=== PATIENT | female | born 1940 | race Caucasian/White ===

== ENCOUNTER 2016-07-29 12:25 | Day surgery (SDC) | payer MEDICARE, BC ==
[2016-07-25 16:55] LABS: HEMATOCRIT 41.2 % (36.0-48.0); HEMOGLOBIN 13.4 g/dL (12.0-16.0)
[2016-07-25 17:02] LABS: BUN (BLOOD UREA NITROGEN) 18 MG/DL (6-23); CALCIUM, SERUM 8.6 MG/DL (8.5-10.4); CHLORIDE, SERUM 100 MMOL/L (96-112); CO2 (CARBON DIOXIDE) 31 MMOL/L (24-34); CREATININE 0.93 MG/DL (0.55-1.02); GFR AFRICAN AMERICAN 70 ML/MIN (>=60); GFR NON AFRICAN AMERICAN 60 ML/MIN (>=60); GLUCOSE, SERUM 66 MG/DL (60-99); POTASSIUM, SERUM 4.7 MMOL/L (3.5-5.3); SODIUM, SERUM 139 MMOL/L (135-148)
--- NOTE | ~2016-07-29 | OP ---
Record Of [place] [address] [place]. [address] NAME: JOSELUIS RANDLE : 42 STATUS : [facility]#: [id number] AGE: 76 ADM/REG DATE : 07/29/16 MR#: [id number] REPORT SERV DATE: 07/29/16 DICTATED BY: HOMERO COOK JR. DATE: 07/29/16 REPORT STATUS : Draft TRANSCRIBED BY: VINH DATE: 07/29/16 DATE OF PROCEDURE: 07/29/2016 SURGEON: Homero Cook M.D. PREOPERATIVE DIAGNOSIS: Left renal stone. POSTOPERATIVE DIAGNOSIS: Left renal stone. PROCEDURE PERFORMED: Left extracorporeal shock wave lithotripsy. COMPLICATIONS: None. CONSULTATIONS: None. ANESTHESIA: Monitored anesthesia care with IV conscious sedation. SPECIMENS: None. DRAINS: None. ESTIMATED BLOOD LOSS: None. INDICATION: Mrs. Randle is a 76-year-old female, who comes today for lithotripsy of a renal pelvic stone on the left side, 1 cm in size. PROCEDURE IN DETAIL: After the patient was identified and proper informed consent was obtained, she was taken to the operating room and placed on the litho table, and the stone was visualized using C-arm fluoroscopy. Once adequately visualized, the patient was placed under IV conscious sedation with monitored anesthesia care. The F2 focal point of the lithotripsy machine was then focused on the stone and 2500 shocks were administered at a power setting between 4 and 5. The patient tolerated the procedure well. The stone appeared to fragment reasonably well on fluoroscopic imaging. She was awakened in the operating room, transferred to the postanesthesia care in stable condition. I will see her back in the office in two weeks with a KUB. CAITY/VINH Homero Cook Jr., M.D. / [id number] CC: Record Of [address] [place]. [address] NAME: JOSELUIS RANDLE : 42 STATUS : [facility] PAT#: [id number] AGE: 76 ADM/REG DATE : 07/29/16 MR#: [id number] REPORT SERV DATE: 07/29/16 DICTATED BY: HOMERO COOK JR. DATE: 07/29/16 REPORT STATUS : Draft TRANSCRIBED BY: MODL DATE: 07/29/16 Gianluca Hoyos Jr., M.D.
[~2016-07-29 12:25] MED LIST: ASAB PO; AVAP150 PO; BEN25 PO; BYDUREON2 MG SQ; KEPPRA750 MG PO; LEXAPRO10 PO; LIPITOR80 MG PO; NABUMETONE750 MG PO; NYQUIL PO; PRILOSEC40 MG PO; TOPROL XL200 MG PO; TRICOR145 PO
[2016-07-29 13:46] LABS: ASCORBIC ACID (UR NOT ORDER) NEG (NEG); BILIRUBIN, URINE NEGATIVE (NEG); KETONE, URINE NEGATIVE (NEG); LEUKOCYTE ESTERASE(NOT OR MOD (NEG); WBC (NOT ORDERED) (RFLEX) 5 (0-5)
== END 2016-07-29 17:45 | disposition home or self-care (01) ==
LOC: SDC 12:25
PROVIDERS: Urology
PROC: 0TF4XZZ Fragmentation in Left Kidney Pelvis, External Approach (ICD-10-PCS; principal; 2016-07-29 15:00)
DX: N20.0 Calculus of kidney (principal); I10 Essential (primary) hypertension; E11.51 Type 2 diabetes mellitus with diabetic peripheral angiopathy without gangrene; E78.00 Pure hypercholesterolemia, unspecified; M19.90 Unspecified osteoarthritis, unspecified site; F41.9 Anxiety disorder, unspecified; Z98.890 Other specified postprocedural states; Z79.82 Long term (current) use of aspirin; Z79.1 Long term (current) use of non-steroidal anti-inflammatories (NSAID); Z79.899 Other long term (current) drug therapy; Z87.891 Personal history of nicotine dependence; Z98.41 Cataract extraction status, right eye; Z98.42 Cataract extraction status, left eye; Z96.1 Presence of intraocular lens; Z90.89 Acquired absence of other organs; Z87.440 Personal history of urinary (tract) infections
CPT/HCPCS: 36415; 50590; 74000; 80048; 81001; 82962; 85014; 85018; 87086; 93005; J2405; J3010

== ENCOUNTER 2016-08-16 09:01 | Day surgery (SDC) | payer MEDICARE, BC ==
--- NOTE | ~2016-08-16 | OP ---
Record Of [facility] [address] [place]. [address] NAME: JOSELUIS RANDLE : 42 STATUS : [facility]#: [id number] AGE: 76 ADM/REG DATE : 08/16/16 MR#: [id number] REPORT SERV DATE: 08/16/16 DICTATED BY: HOMERO COOK JR. DATE: 08/16/16 REPORT STATUS : Draft TRANSCRIBED BY: VINH DATE: 08/16/16 DATE OF PROCEDURE: 08/16/2016 SURGEON: Homero Cook M.D. PREOPERATIVE DIAGNOSIS: Left UPJ stone. POSTOPERATIVE DIAGNOSIS: Left UPJ stone. PROCEDURE PERFORMED: Left ESWL. COMPLICATIONS: None. CONSULTATIONS: None. ANESTHESIA: IV conscious sedation. SPECIMENS: None. DRAINS: None. ESTIMATED BLOOD LOSS: None. INDICATION: Mrs. Randle is a 76-year-old female, who is status post lithotripsy two weeks ago for a left renal pelvic stone. She passed multiple fragments, which she brought back to the office yesterday. I sent those off to be analyzed, but she had a remaining UPJ stone, approximately 3 mm in size, causing significant discomfort and misery. She comes today for repeat lithotripsy of that remaining stone fragment. PROCEDURE IN DETAIL: After the patient was identified and proper informed consent was obtained, she was taken to the lithotripsy suite and placed on the litho table. The stone was visualized using C-arm fluoroscopy. She was then sedated using IV conscious sedation and monitored anesthesia care. Once adequately sedated, the F2 focal point of the lithotripsy machine was focused on the stone. 2500 shocks at a power setting from 0 to 3.0 were administered at a shock rate of 90 per minute. The patient tolerated the procedure well. The stone appeared to fragment on imaging. The patient was then awakened in the litho suite and transferred to the postanesthesia care unit in stable condition. I will see her back in two weeks with a KUB. CAITY/VINH Homero Cook Jr., M.D. Record Of [facility] [address] [place]. [address] NAME: JOSELUIS RANDLE : 42 STATUS : [facility] PAT#: [id number] AGE: 76 ADM/REG DATE : 08/16/16 MR#: [id number] REPORT SERV DATE: 08/16/16 DICTATED BY: HOMERO COOK JR. DATE: 08/16/16 REPORT STATUS : Draft TRANSCRIBED BY: MODL DATE: 08/16/16 / [id number] CC: Gianluca Hoyos Jr., M.D.
[2016-08-16 10:13] LABS: PFA (COL/EPI) 139 SEC (72-180)
== END 2016-08-16 13:54 | disposition home or self-care (01) ==
LOC: SDC 09:01
PROVIDERS: Urology
PROC: 0TF4XZZ Fragmentation in Left Kidney Pelvis, External Approach (ICD-10-PCS; principal; 2016-08-16 11:00)
DX: N20.0 Calculus of kidney (principal); E78.5 Hyperlipidemia, unspecified; I10 Essential (primary) hypertension; K21.9 Gastro-esophageal reflux disease without esophagitis; E78.00 Pure hypercholesterolemia, unspecified; E11.9 Type 2 diabetes mellitus without complications; F41.9 Anxiety disorder, unspecified; I65.29 Occlusion and stenosis of unspecified carotid artery; M19.90 Unspecified osteoarthritis, unspecified site; Z87.891 Personal history of nicotine dependence; Z87.442 Personal history of urinary calculi; Z98.890 Other specified postprocedural states
CPT/HCPCS: 50590; 74000; 82962; 85576; J2250; J2405; J3010

== ENCOUNTER 2016-08-19 13:12 | Observation (INO) | payer MEDICARE, BC ==
--- NOTE | ~2016-08-19 | OP ---
Record Of Operation [facility] [address] [place]. [address] NAME: JOSELUIS RANDLE : 42 STATUS : [facility] PAT#: [id number] AGE: 76 ADM/REG DATE : 08/19/16 MR#: [id number] REPORT SERV DATE: 08/21/16 DICTATED BY: HOMERO COOK JR. DATE: 08/21/16 REPORT STATUS : Draft TRANSCRIBED BY: MODL DATE: 08/21/16 DATE OF PROCEDURE: 08/21/2016 SURGEON: Homero Cook M.D. PREOPERATIVE DIAGNOSIS: Left UPJ stone. POSTOPERATIVE DIAGNOSIS: Left UPJ stone. PROCEDURE PERFORMED: Cystoscopy, left retrograde pyelogram, dilation of left ureteral orifice, left ureteroscopy with laser ablation of left UPJ stone, double-J stent placement. COMPLICATIONS: None. CONSULTATIONS: None. ANESTHESIA: General with an endotracheal tube. SPECIMENS: Stone fragments. DRAINS: 6 x 24 cm double-J stent with string. ESTIMATED BLOOD LOSS: None. INDICATION: Ms. Randle is a 76-year-old female, who has a history of a 1 cm renal pelvic stone. She had lithotripsy which successfully fragmented the majority of the stone; however, she had approximately 3-4 mm residual fragment at the UPJ. I attempted repeat lithotripsy on this fragment, however, she had minimal success and the pain and nausea she was having became unbearable at home. She was admitted to the hospital and was observed for approximately 48 hours without passage of the stone. She comes for stone manipulation and extraction. PROCEDURE IN DETAIL: After the patient was identified and proper informed consent was obtained, she was taken to the operating room. General anesthesia was performed without complication using an endotracheal tube. She was then prepped and draped in normal sterile fashion in the lithotomy position. Cystoscopic examination of the urethra and bladder were found to be normal. The left ureteral orifice was cannulated with a 5-Indonesian open-ended catheter. Retrograde pyelogram was performed which again shows the stone at the UPJ with some dilated areas of the collecting system on the left side. A guidewire was advanced through the open-ended catheter around the stone into the renal pelvis. I dilated the distal ureter using a ureteral access sheath and performed flexible ureteroscopy. The stone was visualized and fragmented using a 200 micron Holmium laser fiber. The fragments were removed using a Nitinol basket. The rest of the kidney was inspected. I did not note any other stones present. The ureteroscope was removed and a 6 x 24 cm double-J stent was placed with a nice curl in both the bladder and the kidney. The string was taped to the patient's left thigh for removal in one week. The bladder was drained. The patient was Record Of [address] [address] NAME: JOSELUIS RANDLE : 42 STATUS : [facility] PAT#: [id number] AGE: 76 ADM/REG DATE : 08/19/16 MR#: [id number] REPORT SERV DATE: 08/21/16 DICTATED BY: HOMERO COOK JR. DATE: 08/21/16 REPORT STATUS : Draft TRANSCRIBED BY: VINH DATE: 08/21/16 awakened in the operating room and transferred to the postanesthesia care unit in stable condition. CAITY/VINH Homero Cook Jr., M.D. / [id number] CC: Gianluca Hoyos Jr., M.D.
--- NOTE | ~2016-08-19 | CN ---
Consultation Report [facility] [address] [place]. [address] NAME: JOSELUIS RANDLE : 42 STATUS : [facility] PAT#: [id number] AGE: 76 ADM/REG DATE : 08/19/16 MR#: [id number] REPORT SERV DATE: 08/21/16 DICTATED BY: GINGER COMBS DATE: 08/21/16 REPORT STATUS : Draft TRANSCRIBED BY: MODL DATE: 08/21/16 DATE OF CONSULTATION: 08/20/2016 REASON FOR CONSULTATION: Consulted for hypertension. IDENTIFYING DATA: 1. PCP, Jaylyn Silva M.D. 2. Vascular surgeon in the past, Chucho Diaz M.D. 3. Urologist, Homero Cook M.D. 4. Neurologist, Aime Pereira M.D. HISTORY OF PRESENT ILLNESS: This is a pleasant 76-year-old female, admitted for a cystoscopy, left retrograde ureteroscopy, stone extraction with JJ stent in the a.m. of 08/21/2016. She was admitted with left flank pain. She was previously noted to have left renal stones for which she had lithotripsy x2, once on 07/29/2016 and then again on 08/16/2016 for which the patient still has symptoms and worsening left flank pain. We have been consulted the hospitalist group to help manage the hypertension the patient has. She had an elevated blood pressure of 220/98 prior to having surgery in the a.m. The patient has a medical history of hypertension, high cholesterol, numerous renal calculi, and she states due to nausea and vomiting, she has been unable to hold her medications down. The patient's history was obtained through interview with the patient along with review of [facility], [facility], and sap ppm consultant notes and medical records reviewed. PAST MEDICAL HISTORY: 1. Cataracts. 2. Hypertension. 3. High cholesterol. 4. Arthritis. 5. GERD. 6. Renal calculi. 7. Frequent UTIs. 8. Anxiety. 9. Diabetes type 2 for which she rarely if any checks her blood sugars and she is unaware of her hemoglobin A1c level. HOME MEDICATIONS: 1. Aspirin 81 mg p.o. every day at bedtime. 2. Lipitor 80 mg p.o. at bedtime. 3. Benadryl 25 mg p.o. daily p.r.n. allergies. 4. Lexapro 10 mg p.o. every morning. 5. Exenatide extended-release injection 2 mg subcutaneously every seven days on Friday. 6. TriCor 145 mg p.o. every day at bedtime. 7. Dilaudid 2-4 mg p.o. every four hours p.r.n. pain. Consultation Report [place] [id number] [place]. [address] NAME: JOSELUIS RANDLE : 42 STATUS : [facility] PAT#: [id number] AGE: 76 ADM/REG DATE : 08/19/16 MR#: [id number] REPORT SERV DATE: 08/21/16 DICTATED BY: GINGER COMBS DATE: 08/21/16 REPORT STATUS : Draft TRANSCRIBED BY: VINH DATE: 08/21/16 8. Avapro 150 mg p.o. every day at bedtime. 9. Keppra 750 mg p.o. twice a day. 10.Toprol-XL 200 mg p.o. every day at bedtime. 11.Milk of magnesia 30 mL p.o. daily p.r.n. constipation. 12.Nabumetone 750 mg p.o. twice a day. 13.Prilosec 40 mg p.o. every morning. 14.Zofran 4 mg p.o. every six hours p.r.n. nausea. ALLERGIES: NO KNOWN ALLERGIES. SOCIAL HISTORY: The patient has been for 44 years, lives in a single-level home, has one grown son, was a previous smoker and quit in 1991. Very rare alcohol use and it has been greater than a year ago that she drink any alcohol. FAMILY HISTORY: 1. Mother was positive for hypertension. 2. Father was positive for [place] and diabetes. SURGICAL HISTORY: 1. IOLI approximately two to three years ago. 2. Tonsillectomy in childhood. 3. Right carotid endarterectomy, which was greater than five years ago. 4. Lithotripsy for left renal stone on 07/29/2016 and then again on 08/16/2016. REVIEW OF SYSTEMS: Negative other than what is included in HPI. The patient is alert and oriented x3. She has no shortness of breath. No complaints of nausea and vomiting presently. No abdominal pain presently. No chest pain. No fever. Displays no confusion or agitation. PHYSICAL EXAMINATION: VITAL SIGNS: From today, blood pressure 220/98, respiratory rate 16, heart rate 98, temperature 98.5, and O2 saturation 94% on room air. After medication given, blood pressure came down to 184/86. GENERAL: This is a very pleasant 76-year-old female, resting in bed. She is in no acute distress. NEURO: Her head is atraumatic. She is normocephalic. She is alert and oriented x3. Her cranial nerves are intact. Her mood is pleasant and appropriate. NECK: Her neck is supple. Trachea is midline. No JVD noted. No obvious thyromegaly or lymphadenopathy. EENT: Sclerae are nonicteric. Pupils are equal and reactive to light. Her nares are patent. Mucous membranes are moist. Tongue is midline without deviation. Her soft palate rises equally on phonation. CHEST: No pain with palpation. LUNGS: Clear to auscultation bilaterally. She has normal respiratory effort. No increased work of breathing with conversation. She is presently on room air with O2 saturation of Consultation Report [address] [address] NAME: JOSELUIS RANDLE : 42 STATUS : [facility] PAT#: [id number] AGE: 76 ADM/REG DATE : 08/19/16 MR#: [id number] REPORT SERV DATE: 08/21/16 DICTATED BY: GINGER COMBS DATE: 08/21/16 REPORT STATUS : Draft TRANSCRIBED BY: MODL DATE: 08/21/16 94%. CARDIOVASCULAR: S1 and S2 with no obvious murmurs, rubs, or gallops. She is placed on telemetry and displays a sinus rhythm with a rate at 95 without ectopy. ABDOMEN: Soft, nontender. She does have active bowel sounds. No palpable organomegaly. EXTREMITIES: Normal distal pulses. No calf tenderness. No edema. I have ordered SCDs and TEDs for DVT prophylaxis prior to her surgical procedure. SKIN: Warm and dry. No unusual rashes or lesions. Normal color and turgor for age. PSYCH: The patient is pleasant and cooperative. Mood is appropriate as well as affect. LABORATORY DATA: Sodium 137, potassium 3.4, chloride 97, BUN 15, creatinine 0.93, GFR 70, glucose 87, calcium 9.8, white blood cell 8.0, hemoglobin 12.7, hematocrit 37.5, platelets 426. She does have an EKG ordered for a.m. ASSESSMENT AND PLAN: 1. Hypertension. The patient does have a history of hypertension. On admission, her blood pressure was 220/98. She does get medications of Avapro and metoprolol. Her aspirin is on hold right now until after surgery. We will add p.r.n. hydralazine 10-20 mg IV q.6h p.r.n. systolic BP greater than 160. She will be placed on telemetry. 2. Diabetes type 2. Aware. She is on Exenatide every seven days, which is normally on every Friday. She does not check her blood sugars at all. She states her PCP takes care of her lab work and she is not aware of her hemoglobin A1c. We will hold her exenatide presently and place her on fingerstick blood sugars a.c. and h.s. with a sliding scale insulin level 1. We will add a hypoglycemic protocol. Also have clinical systems educator discuss monitoring her blood sugars and she does not monitor at all at home and discussed diet with her. 3. Hypercholesterolemia. Aware. We will continue her Lipitor and TriCor. 4. Gastroesophageal reflux disease. Aware. Her Prilosec will be continued daily. 5. Questionable seizure disorder. The patient does not state that she has a seizure disorder, but she sees a neurologist and states that she takes Keppra b.i.d. daily. We will continue her Keppra daily. The patient states that she had an episode of confusion at one point and disorientation and went to see a neurologist and he placed her on Keppra. 6. Seasonal allergies. The patient's Benadryl p.r.n. will be continued as well. We will add [place] nasal spray as needed for dryness and congestion. 7. Labs are ordered for BMP, magnesium, phosphorus, CBC, hemoglobin A1c, PT and INR and EKG for a.m. 8. The hospitalist group would like to thank you for this consultation. Please let us know if we could be of further assistance. ROBB Ginger Combs NP Consultation Report [place] [id number] [facility] [place]. [address] NAME: JOSELUIS RANDLE : 42 STATUS : [facility] PAT#: [id number] AGE: 76 ADM/REG DATE : 08/19/16 MR#: [id number] REPORT SERV DATE: 08/21/16 DICTATED BY: GINGER COMBS DATE: 08/21/16 REPORT STATUS : Draft TRANSCRIBED BY: MODL DATE: 08/21/16 / [id number] CC: Gianluca Hoyos Jr., M.D.
[2016-08-19 14:49] LABS: BASOPHILS 0.5 %; BASOPHILS ABSOLUTE 0.04 10/3/uL (0.0-0.16); EOSINOPHILS ABSOLUTE 0.08 10/3/uL (0.0-0.53); HEMATOCRIT 37.5 % (36.0-48.0); HEMOGLOBIN 12.7 g/dL (12.0-16.0); IMMATURE GRANULOCYTES 0.3 %; IMMATURE GRANULOCYTES ABSOLUTE 0.02 10/3/uL (0.0-0.11); LYMPHOCYTES 25.4 %; LYMPHOCYTES ABSOLUTE 2.02 10/3/uL (0.67-4.30); MEAN CORPUS HGB CONC 33.9 g/dL (32.0-36.0); MEAN CORPUSCULAR HEMOGLOB 32.1 pg (26.0-34.0); MEAN CORPUSCULAR VOLUME 94.7 fL (80-100); MEAN PLATELET VOLUME 9.2 fL (9.2-13.0); MONOCYTES 13.9 %; MONOCYTES ABSOLUTE 1.11 10/3/uL (0.21-1.20); NEUTROPHILS 58.9 %; NEUTROPHILS ABSOLUTE 4.69 10/3/uL (2.02-8.40); PLATELET COUNT 426 10/3/uL (150-400); RBC DISTRIBUTION WIDTH 12.8 % (12.0-16.0); RED CELL COUNT 3.96 10/6/uL (4.0-5.6)
[2016-08-19 14:50] LABS: MANUAL DIFF NO %
[2016-08-19 17:31] LABS: BUN (BLOOD UREA NITROGEN) 15 MG/DL (6-23); CHLORIDE, SERUM 97 MMOL/L (96-112); CO2 (CARBON DIOXIDE) 31 MMOL/L (24-34); CREATININE 0.93 MG/DL (0.55-1.02); GFR AFRICAN AMERICAN 70 ML/MIN (>=60); GFR NON AFRICAN AMERICAN 60 ML/MIN (>=60); SODIUM, SERUM 137 MMOL/L (135-148)
[2016-08-19 17:32] LABS: CALCIUM, SERUM 9.8 MG/DL (8.5-10.4); GLUCOSE, SERUM 87 MG/DL (60-99); POTASSIUM, SERUM 3.4 MMOL/L (3.5-5.3)
[2016-08-19] MEDS ORDERED: MOMUD PO (17:37)
[2016-08-19] MEDS ORDERED: DIL2TAB PO (17:39)
[2016-08-19] MEDS ORDERED: ZOFRAN4 PO (17:39)
[2016-08-19 19:00] LABS: ASCORBIC ACID (UR NOT ORDER) NEG (NEG); BILIRUBIN, URINE NEGATIVE (NEG); KETONE, URINE NEGATIVE (NEG); LEUKOCYTE ESTERASE(NOT OR SMALL (NEG); WBC (NOT ORDERED) (RFLEX) 10 (0-5)
[2016-08-21 04:35] LABS: BASOPHILS 0.3 %; BASOPHILS ABSOLUTE 0.03 10/3/uL (0.0-0.16); EOSINOPHILS 1.9 %; EOSINOPHILS ABSOLUTE 0.17 10/3/uL (0.0-0.53); HEMATOCRIT 36.6 % (36.0-48.0); HEMOGLOBIN 12.2 g/dL (12.0-16.0); IMMATURE GRANULOCYTES 0.4 %; IMMATURE GRANULOCYTES ABSOLUTE 0.04 10/3/uL (0.0-0.11); INTERNATIONAL NORMAL RATI 1.1 UNITS (-); LYMPHOCYTES 27.1 %; LYMPHOCYTES ABSOLUTE 2.43 10/3/uL (0.67-4.30); MEAN CORPUS HGB CONC 33.3 g/dL (32.0-36.0); MEAN CORPUSCULAR HEMOGLOB 31.5 pg (26.0-34.0); MEAN CORPUSCULAR VOLUME 94.6 fL (80-100); MEAN PLATELET VOLUME 9.1 fL (9.2-13.0); MONOCYTES 13.8 %; MONOCYTES ABSOLUTE 1.24 10/3/uL (0.21-1.20); NEUTROPHILS 56.5 %; NEUTROPHILS ABSOLUTE 5.05 10/3/uL (2.02-8.40); PLATELET COUNT 398 10/3/uL (150-400); PROTIME (NOT ORD) 14.1 SEC (12.0-14.5); RBC DISTRIBUTION WIDTH 13.2 % (12.0-16.0); RED CELL COUNT 3.87 10/6/uL (4.0-5.6)
[2016-08-21 04:39] LABS: MANUAL DIFF NO %
[2016-08-21 04:46] LABS: BUN (BLOOD UREA NITROGEN) 18 MG/DL (6-23); CALCIUM, SERUM 9.2 MG/DL (8.5-10.4); CHLORIDE, SERUM 104 MMOL/L (96-112); CO2 (CARBON DIOXIDE) 28 MMOL/L (24-34); CREATININE 0.81 MG/DL (0.55-1.02); GFR AFRICAN AMERICAN 82 ML/MIN (>=60); GFR NON AFRICAN AMERICAN 71 ML/MIN (>=60); PHOSPHORUS, SERUM 2.1 MG/DL (2.5-4.5); POTASSIUM, SERUM 3.6 MMOL/L (3.5-5.3); SODIUM, SERUM 140 MMOL/L (135-148)
[2016-08-21 04:51] LABS: GLUCOSE, SERUM 119 MG/DL (60-99)
[2016-08-21] MEDS ORDERED: CEFT5 PO (12:12)
[2016-08-21] MEDS ORDERED: DSS PO (12:14)
[2016-08-25 16:48] LABS: STONE COMPOSITION TWO DNR (())
== END 2016-08-21 18:41 | disposition home or self-care (01) ==
LOC: 4SO 13:12
PROVIDERS: Urology
PROC: 0T778DZ Dilation of Left Ureter with Intraluminal Device, Via Natural or Artificial Opening Endoscopic (ICD-10-PCS; principal; 2016-08-21 07:45)
PROC: 0TF78ZZ Fragmentation in Left Ureter, Via Natural or Artificial Opening Endoscopic (ICD-10-PCS; 2016-08-21 07:45)
PROC: BT1FYZZ Fluoroscopy of Left Kidney, Ureter and Bladder using Other Contrast (ICD-10-PCS; 2016-08-21 07:45)
DX: N20.1 Calculus of ureter (principal); Z79.82 Long term (current) use of aspirin; Z79.899 Other long term (current) drug therapy; E11.9 Type 2 diabetes mellitus without complications; E78.00 Pure hypercholesterolemia, unspecified; K21.9 Gastro-esophageal reflux disease without esophagitis; M19.90 Unspecified osteoarthritis, unspecified site; Z83.3 Family history of diabetes mellitus; Z82.49 Family history of ischemic heart disease and other diseases of the circulatory system; N39.0 Urinary tract infection, site not specified; F41.9 Anxiety disorder, unspecified; Z90.89 Acquired absence of other organs; Z87.442 Personal history of urinary calculi; Z98.41 Cataract extraction status, right eye; Z98.42 Cataract extraction status, left eye; Z98.890 Other specified postprocedural states
CPT/HCPCS: 74000; 74420; 80048; 81001; 82365; 82962; 83036; 83735; 84100; 85025; 85610; 87086; 93005; 96374; 96375; A9270-GY; C1758; C1769; C2617; G0378; J0360; J2250; J2405; J2710; J3010; Q9967